=== PATIENT | female | born 1995 | race Two or more races ===

== ENCOUNTER 2021-03-14 10:52 | Emergency (ER) | payer OTHER ==
[~2021-03-14] VITALS: Ht 165.1 cm; Wt 59.9 kg
[2021-03-14] MEDS ORDERED: PRENATAL + DHA1 EAC1 PO (11:38)
== END 2021-03-14 12:12 | disposition home or self-care (01) ==
LOC: ER 10:52
DX: O98.511 Other viral diseases complicating pregnancy, first trimester (principal); U07.1 COVID-19; Z3A.10 10 weeks gestation of pregnancy